=== PATIENT | male | born 1960 | race Caucasian/White ===

== ENCOUNTER 2020-03-22 10:53 | Emergency (ER) | payer OTHER, SELFPAY ==
[2020-03-22 11:11] VITALS: BMI 29.0
--- NOTE | 2020-03-22 11:13 | CT_ITS ---
WS: [id number] CT ABDOMEN AND PELVIS WITH CONTRAST HISTORY: Abdominal pain after lifting. History of hernia repair. TECHNIQUE: Imaging performed of the abdomen and pelvis with IV contrast. Single phase imaging of the abdomen. Coronal and sagittal reformats are submitted. All CT scans at [facility] use at least one of these dose optimization techniques: automated exposure control; mA and/or kV adjustment per patient size (includes targeted exams where dose is matched to clinical indication); or iterativ e reconstruction. IV CONTRAST: Omnipaque 300; 95 mL IV. Oral contrast: No DLP: 1018.95 mGy.cm COMPARISON: 08/27/2018 Lower thorax: Lung bases are clear. Heart is normal size. Small hiatal hernia. Liver/biliary system: Normal size liver. Subcentimeter hypodensities in the LEFT lobe are stable and probably cysts. Gallbladder: Normal. No gallstones or wall thickening. No pericholecystic fluid. Pancreas: Normal. Spleen: Normal. Adrenal glands: Normal RIGHT adrenal gland. Again noted is a low-attenuation nodule in the LEFT adren al gland measuring 1.5 cm which is probably benign adenoma. Right kidney: Normal size kidney. Large pelvic cyst measuring 3.9 x 4.6 cm. There are few other scatt ered cortical cysts which are too small to characterize. There is a noncystic mass from the lower adan e measuring 17 mm diameter. This was described on the prior study of 08/27/2018 with slight increase i n diameter since the prior study. Diameter has increased from 13 to 17 mm. Left kidney: Upper pole 2.8 cm cyst. No solid mass or obstruction Aorta: Mild atherosclerosis with no aneurysm. Lymphadenopathy: None. Free fluid: None. GI tract: No GI tract obstruction. The appendix is normal. Abdominal wall: Mild thinning of the intra-abdominal wall. Prior hernia repair on the LEFT. No recurr ent hernia. There is no GI tract obstruction. Pelvis: No free fluid in the pelvis. Urinary bladder is well distended. Bones: Unremarkable. CT/CT abdomen pelvis w con* [id number] IMPRESSION: 1. No evidence for recurrent hernia or GI tract obstruction. 2. No free fluid or adenopathy. 3. Solid mass versus complex cyst lower pole RIGHT kidney has slightly increas ed in size from 13 to 17 mm. Suspicious for renal cell neoplasm and will need t o be further evaluated. Recommend follow-up renal mass CT protocol in 6 months.
--- NOTE | 2020-03-22 11:14 | ED_ITS ---
HPI - Abdominal Pain General: Chief Complaint: Abdominal Pain Stated Complaint: ABD PAIN Time Seen by Provider: 03/22/20 11:11 Source: patient Mode of arrival: ambulatory Limitations: no limitations History of Present Illness: HPI narrative: 59-year-old male has a history of multiple surgeries in the past including hernia. Patient states he took a pain pill this morning and his pain is minimal currently. He denies any vomiting diarrhea or fevers. MD elicited complaint: abdominal pain Pertinent past history: none Onset (ago): day(s) Pain Consistency: constant Location: Diffuse Severity: mild Quality: sharp Radiation: none Exacerbating factors: nothing Relieving factors: nothing Associated Symptoms: Denies chills, dysuria and fever(s) Review of Systems Const: Denies: fever, chills, body aches or change in appetite Eyes: Denies: blurry vision or eye discomfort ENMT: Denies: throat pain or dental pain Card: Denies: chest pain Resp: Denies: shortness of breath GI: Reports: abdominal pain : Denies: painful urination Musc: Denies: neck pain or back pain Skin/Breast: Denies: rash Neuro: Denies: headache Psych: Denies: depression Alonso/Lymph: Denies: easy bruising All/Imm: Denies: hives PFSH ED PFSH: Social History Smoking and tobacco status: current every day smoker Physical Exam Const: COMMON NORMALS: no apparent distress, oriented x3 and healthy appearing HENMT: COMMON NORMALS: normocephalic and head/scalp atraumatic HEAD & SCALP: normocephalic and atraumatic Eye: COMMON NORMALS: PERRL and EOMs intact bilaterally PUPIL: Yes PERRL Neck/C-Spine: COMMON NORMALS: full ROM and supple Chest: COMMONS NORMALS: inspection of chest normal and palpation of chest normal Resp: COMMON NORMALS: normal respiratory effort, no retractions, no use of accessory muscles and clear to auscultation bilaterally AUSCULTATION: clear to auscultation bilaterally Cardio: COMMON NORMALS: regular rate, regular rhythm and no murmurs RATE: regular rate RHYTHM: regular rhythm GI: COMMON NORMALS: normal to inspection, nondistended, normoactive bowel sounds, soft to palpation and no masses PALPATION: Yes soft OTHER: diffuse tenderness along with multiple scars Extremity: COMMON NORMALS: normal to inspection and full ROM Neuro: COMMON NORMALS: oriented x3, moves all extremities and no focal motor deficits Psych: COMMON NORMALS: mental status grossly normal, thought process normal and cooperative THOUGHT PROCESS: normal thought process Skin: COMMON NORMALS: no rashes or lesions noted and no wounds GENERAL SKIN EXAM: no rashes or lesions noted Course Vital Signs: Vital signs: Vital Signs Temperature 97.9 F 03/22/20 11:17 Pulse Rate 64 03/22/20 11:17 Respiratory Rate 16 03/22/20 12:11 Blood Pressure 155/92 03/22/20 11:17 Pulse Oximetry 97 03/22/20 11:17 MDM - Abdominal Pain MDM Narrative: Medical decision making narrative: Patient presents here with abdominal pain. He does have extensive history of multiple surgeries. Patient's lab work and CT scan here are normal. His pain is much improved as well and abdominal exam is benign. Patient is stable for discharge and is to follow-up with his primary care doctor in 2 to 4 days and return to the ER if worsening. Lab Data: Labs: Lab Results 03/22/20 03/22/20 Range/Units 11:20 11:20 WBC 9.0 (4.0-10.0) 10^3/ uL RBC 5.26 (4.1-5.3) 10^6/u L Hgb 16.3 (11.7-16.6) g/dL Hct 49.2 (42.0-52.0) % MCV 93.5 (80-94) fL MCH 31.0 (28.0-34.0) pg MCHC 33.1 (30.0-36.0) g/dL RDW 15.5 H (12.1-15.1) % Plt Count 275 (130-400) 10^3/c mm MPV 10.3 (7.4-10.4) fL Neut % (Auto) 66.2 % Lymph % (Auto) 22.4 % [place] % (Auto) 8.2 % Eos % (Auto) 2.0 % Baso % (Auto) 0.6 % Neut # (Auto) 6.0 (1.8-7.7) 10^3/u L Lymph # (Auto) 2.0 (0.8-4.8) 10^3/u L [place] # (Auto) 0.7 (0.2-0.9) 10^3/u L Eos # (Auto) 0.2 (0.0-0.8) 10^3/u L Baso # (Auto) 0.1 (0.0-0.1) 10^3/u L Nucleated RBC % (a uto) 0 % Nucleated RBCs # 0.0 /100WBC Sodium 137 (136-145) mmol/L Potassium 4.6 (3.5-5.1) mmol/L Chloride 101 (98-107) mmol/L Carbon Dioxide 26 (22-29) mmol/L Anion Gap 14.6 (5-19) BUN 10 (8-23) mg/dL Creatinine 0.8 (0.7-1.2) mg/dL GFR Calculation 98.3 (90-130) mL/min Glucose 106 (65-115) mg/dL Calculated Osmolal ity 280 L (285-295) mOsm/k g Calcium 10.0 (8.5-10.5) mg/dL Total Bilirubin 0.7 (0.15-1.2) mg/dL AST 16 (0-40) U/L ALT 11 (0-41) U/L Alkaline Phosphata se 114 (40-130) IU/L Total Protein 7.5 (6.6-8.7) g/dL Albumin 4.5 (3.5-5.2) g/dL Globulin 3.0 (1.3-4.6) g/dL Lipase 19 (13-60) U/L Imaging Data ^: CT Abd/Pel: Radiologist's impression: [place] [address] CT Scan Report Signed Patient: Klever Avitia Unit #: [id number] : [id number] Age/Sex: 59 / M ADM Date: 03/22/20 Loc: ER Room/Bed: Attending Dr: Ordering Provider/Ordering MD: Kiel Velasco MD Date of Service: 03/22/20 Procedure(s): CT abdomen pelvis w con* [id number] Accession Number(s): [id number] Report Number: [id number] WS: [id number] CT ABDOMEN AND PELVIS WITH CONTRAST HISTORY: Abdominal pain after lifting. History of hernia repair. TECHNIQUE: Imaging performed of the abdomen and pelvis with IV contrast. Single phase imaging of the abdomen. Coronal and sagittal reformats are submitted. All CT scans at [facility] use at least one of these dose optimization techniques: automated exposure c ontrol; mA and/or kV adjustment per patient size (includes targeted exams where dose is matched to clinical indication); or iterative reconstruction. IV CONTRAST: Omnipaque 300; 95 mL IV. Oral contrast: No DLP: 1018.95 mGy.cm COMPARISON: 08/27/2018 Lower thorax: Lung bases are clear. Heart is normal size. Small hiatal hernia. Liver/biliary system: Normal size liver. Subcentimeter hypodensities in the LEFT lobe are stable and probably cysts. Gallbladder: Normal. No gallstones or wall thickening. No pericholecystic fluid. Pancreas: Normal. Spleen: Normal. Adrenal glands: Normal RIGHT adrenal gland. Again noted is a low-attenuation nodule in the LEFT adrenal gland measuring 1.5 cm which is probably benign adenoma. Right kidney: Normal size kidney. Large pelvic cyst measuring 3.9 x 4.6 cm. There are few other scattered cortical cysts which are too small to characterize. There is a noncystic mass from the lower pole measuring 17 mm diameter. This was described on the prior study of 08/27/2018 with slight increase in diameter since the prior study. Diameter has increased from 13 to 17 mm. Left kidney: Upper pole 2.8 cm cyst. No solid mass or obstruction Aorta: Mild atherosclerosis with no aneurysm. Lymphadenopathy: None. Free fluid: None. GI tract: No GI tract obstruction. The appendix is normal. Abdominal wall: Mild thinning of the intra-abdominal wall. Prior hernia repair on the LEFT. No recurrent hernia. There is no GI tract obstruction. Pelvis: No free fluid in the pelvis. Urinary bladder is well distended. Bones: Unremarkable. CT/CT abdomen pelvis w con* [id number] IMPRESSION: 1. No evidence for recurrent hernia or GI tract obstruction. 2. No free fluid or adenopathy. 3. Solid mass versus complex cyst lower pole RIGHT kidney has slightly increased in size from 13 to 17 mm. Suspicious for renal cell neoplasm and will need to be further evaluated. Recommend follow-up renal mass CT protocol in 6 months. Discharge Plan Discharge Patient Disposition: Home, Self-Care Clinical Impression: Abdominal pain Qualifiers: Abdominal location: generalized Qualified Code(s): R10.84 - Generalized abdominal pain Condition: Stable Discharge Orders: Discharge Order (Routine); Ordered 03/22/20 Ordered By: Kiel Velasco Referrals: Vitaliy Dc [Primary Care Provider] - Discharge Diet: Advance as tolerated Discharge Activity: Resume usual activity Patient Instructions: Abdominal Pain (ED) Coding Level of Care Code ED Inspector And Adjuster [place] for Chg Fwd Exam Comprehensive
[2020-03-22 11:17] VITALS: BP 155/92; PULSE 64; RESP 16; TEMP 36.6; O2SAT 97
[2020-03-22 11:28] LABS: Basophils # 0.1 10^3/uL (0.0-0.1); Basophils % 0.6 %; Eosinophils # 0.2 10^3/uL (0.0-0.8); Hematocrit 49.2 % (42.0-52.0); Hemoglobin 16.3 g/dL (11.7-16.6); Lymphocytes % 22.4 %; Mean Corpuscular HGB Conc 33.1 g/dL (30.0-36.0); Mean Corpuscular Volume 93.5 fL (80-94); Mean Platelet Volume 10.3 fL (7.4-10.4); Monocytes # 0.7 10^3/uL (0.2-0.9); Monocytes % 8.2 %; Neutrophils % 66.2 %; Nucleated Red Blood Cells % 0 %; Platelet Count 275 10^3/cmm (130-400); Red Blood Count 5.26 10^6/uL (4.1-5.3); Red Cell Distribution Width 15.5 % (12.1-15.1)
[2020-03-22 11:44] LABS: Alanine Aminotransferase 11 U/L (0-41); Albumin Level 4.5 g/dL (3.5-5.2); Alkaline Phosphatase 114 IU/L (40-130); Anion Gap 14.6 (5-19); Blood Urea Nitrogen 10 mg/dL (8-23); Carbon Dioxide 26 mmol/L (22-29); Chloride 101 mmol/L (98-107); Glomerular Filtration Rate 98.3 mL/min (90-130); Glucose 106 mg/dL (65-115); Lipase 19 U/L (13-60); Osmolality Calculated 280 mOsm/kg (285-295); Potassium 4.6 mmol/L (3.5-5.1); Sodium 137 mmol/L (136-145); Total Bilirubin 0.7 mg/dL (0.15-1.2); Total Protein 7.5 g/dL (6.6-8.7)
[2020-03-22] MEDS: ondansetron 2 mg/ML SDV 2 mL 4 MG IVP (12:02)
[2020-03-22 12:11] VITALS: RESP 16
[2020-03-22] MEDS: HYDROmorphone 1 mg/mL INJ 1 mL IVP (12:11)
[2020-03-22 12:31] LABS: Aspartate Amino Transferase 16 U/L (0-40)
[2020-03-22] MEDS: iohexol 300 mg/mL 100 mL Btl IV (12:39)
[2020-03-22 13:49] VITALS: BP 153/81; PULSE 59; RESP 16; O2SAT 95
== END 2020-03-22 13:51 | disposition home or self-care (01) ==
PROVIDERS: Emergency Provider Emergency Medicine; Family Provider Family Medicine; PCP Family Medicine
DX: R10.84 Generalized abdominal pain (principal); F17.210 Nicotine dependence, cigarettes, uncomplicated
CPT/HCPCS: 12345; 74177; 80053; 83690; 85025; 96374; 96375; 99282; 99284; J1170; J2270; J2405; Q9967